=== PATIENT | male | born 1965 | race Native Hawaiian/Other Pacific Islander ===

== ENCOUNTER 2018-04-07 15:38 | Emergency (ER) | payer OTHER ==
[~2018-04-07] VITALS: Ht 180.3 cm; Wt 83.9 kg
[2018-04-07 21:10] VITALS: BP 134/86; TEMP 98.2
== END 2018-04-07 21:11 | disposition home or self-care (01) ==
LOC: ED 15:38
DX: S22.42XA Multiple fractures of ribs, left side, initial encounter for closed fracture (principal); W01.198A Fall on same level from slipping, tripping and stumbling with subsequent striking against other object, initial encounter; Y92.69 Other specified industrial and construction area as the place of occurrence of the external cause
CPT/HCPCS: 36415; 96374; 99284; J1885; Q9963

== ENCOUNTER 2018-10-10 13:42 | Emergency (ER) | payer OTHER ==
[~2018-10-10] VITALS: Ht 180.3 cm; Wt 89.4 kg
[2018-10-10 14:22] LABS: PLATELET COUNT 291 K/uL (142-355)
[2018-10-10] MEDS ORDERED: PROTONIX20 MG PO (14:25)
[2018-10-10] MEDS ORDERED: IBU800 MG PO (14:26)
[2018-10-10 14:49] LABS: POTASSIUM 3.7 mmol/L (3.6-5.2); SODIUM 134 mmol/L (136-145)
[2018-10-10 16:47] LABS: PARTIAL THROMBOPLASTIN TIME 30.1 SECONDS (24.5-33.6)
[2018-10-10 16:55] VITALS: BP 119/77; TEMP 99.6
== END 2018-10-10 16:55 | disposition home or self-care (01) ==
LOC: ED 13:42
PROVIDERS: Student in an Organized Health Care Education/Training Program
DX: R50.9 Fever, unspecified (principal); B34.9 Viral infection, unspecified; R00.0 Tachycardia, unspecified
CPT/HCPCS: 36415; 80053; 81000; 83605; 83690; 83735; 84484; 85027; 85610; 85730; 87040; 87502; 93005; 96361; 96365; 96375; 99284; J2405; J3475

== ENCOUNTER 2019-03-10 08:54 | Outpatient (CLI) | payer OTHER ==
[~2019-03-10 08:54] MED LIST: IBU800 MG PO; PROTONIX20 MG PO
== END 2019-03-10 22:23 | disposition home or self-care (01) ==
LOC: RAD 08:54
DX: Z96.89 Presence of other specified functional implants (principal)

== ENCOUNTER 2019-05-01 13:22 | Outpatient (CLI) | payer OTHER ==
[2019-05-01 13:58] LABS: PLATELET COUNT 249 K/uL (142-355)
[2019-05-01 14:08] LABS: POTASSIUM 4.2 mmol/L (3.6-5.2)
== END 2019-05-01 20:17 | disposition home or self-care (01) ==
LOC: LABW 13:22
PROVIDERS: Internal Medicine Gastroenterology
DX: R10.13 Epigastric pain (principal); K86.1 Other chronic pancreatitis
CPT/HCPCS: 36415; 80053; 82150; 82784; 83690; 85027

== ENCOUNTER 2019-11-30 09:07 | Emergency (ER) | payer OTHER ==
[~2019-11-30] VITALS: Ht 180.3 cm; Wt 89.4 kg
[2019-11-30 09:15] VITALS: TEMP 98.9
[2019-11-30 09:54] LABS: POTASSIUM 4.2 mmol/L (3.6-5.2)
[2019-11-30 10:01] LABS: PLATELET COUNT 287 K/uL (142-355)
[2019-11-30 12:39] VITALS: BP 145/91
== END 2019-11-30 13:15 | disposition home or self-care (01) ==
LOC: ED 09:07
PROVIDERS: Hospitalist
DX: R10.84 Generalized abdominal pain (principal); K86.1 Other chronic pancreatitis
CPT/HCPCS: 80053; 80320; 81000; 82150; 83690; 85027; 96360; 96375; 99284; J1170; J2405; Q9963

== ENCOUNTER 2019-12-13 08:56 | Outpatient (CLI) | payer OTHER | END 2019-12-13 19:43 | disposition home or self-care (01) | LOC: MRI 08:56 → LABW 08:56 → MRI 09:00 | DX: R93.3 Abnormal findings on diagnostic imaging of other parts of digestive tract (principal); R79.89 Other specified abnormal findings of blood chemistry; K86.9 Disease of pancreas, unspecified | CPT/HCPCS: 36415; 82565; 84520; 86316; A9576 ==

== ENCOUNTER 2020-02-01 14:39 | Outpatient (CLI) | payer OTHER ==
[2020-02-01 15:08] LABS: PLATELET COUNT 279 K/uL (142-355)
[2020-02-01 15:26] LABS: POTASSIUM 4.8 mmol/L (3.6-5.2)
== END 2020-02-01 23:45 | disposition home or self-care (01) ==
LOC: LAB 14:39
PROVIDERS: Nurse Practitioner Family
DX: K21.9 Gastro-esophageal reflux disease without esophagitis (principal); E11.9 Type 2 diabetes mellitus without complications; R53.81 Other malaise; R53.83 Other fatigue; Z79.899 Other long term (current) drug therapy; E55.9 Vitamin D deficiency, unspecified
CPT/HCPCS: 80053; 80061; 83036; 84439; 84443; 84481; 85027

== ENCOUNTER 2020-08-29 13:34 | Outpatient (CLI) | payer OTHER | END 2020-08-29 19:55 | disposition home or self-care (01) | LOC: MRI 13:34 | PROVIDERS: ATTEND Internal Medicine Gastroenterology | DX: K86.89 Other specified diseases of pancreas (principal) | CPT/HCPCS: 36415; 82565; 84520; A9576 ==

== ENCOUNTER 2020-11-14 16:39 | Outpatient (CLI) | payer OTHER | END 2020-11-14 19:52 | disposition home or self-care (01) | LOC: LAB 16:39 | PROVIDERS: ATTEND Nurse Practitioner Family | DX: Z87.19 Personal history of other diseases of the digestive system (principal); R31.9 Hematuria, unspecified | CPT/HCPCS: 84153 ==

== ENCOUNTER 2021-01-09 13:39 | Outpatient (CLI) | payer OTHER | END 2021-01-09 22:17 | disposition home or self-care (01) | LOC: LAB 13:39 | PROVIDERS: ATTEND Nurse Practitioner Family | DX: R05 Cough (principal); Z11.52 Encounter for screening for COVID-19 | CPT/HCPCS: 87635; U0003 ==

== ENCOUNTER 2021-01-30 13:14 | Outpatient (CLI) | payer OTHER ==
[2021-01-30 13:24] LABS: PLATELET COUNT 252 K/uL (142-355)
[2021-01-30 13:45] LABS: POTASSIUM 4.3 mmol/L (3.6-5.2)
== END 2021-01-30 19:13 | disposition home or self-care (01) ==
LOC: LAB 13:14
PROVIDERS: ATTEND Nurse Practitioner Family
DX: Z00.00 Encounter for general adult medical examination without abnormal findings (principal); Z79.899 Other long term (current) drug therapy; E11.9 Type 2 diabetes mellitus without complications; E78.5 Hyperlipidemia, unspecified; E55.9 Vitamin D deficiency, unspecified; R53.83 Other fatigue; R53.81 Other malaise
CPT/HCPCS: 80053; 80061; 82306; 83036; 84439; 84443; 85027

== ENCOUNTER 2021-05-01 16:02 | Outpatient (CLI) | payer OTHER ==
[2021-05-01 16:55] LABS: PLATELET COUNT 250 K/uL (142-355)
[2021-05-01 17:24] LABS: POTASSIUM 4.6 mmol/L (3.6-5.2)
== END 2021-05-01 19:27 | disposition home or self-care (01) ==
LOC: LAB 16:02
PROVIDERS: ATTEND Nurse Practitioner Family
DX: E11.9 Type 2 diabetes mellitus without complications (principal); K21.9 Gastro-esophageal reflux disease without esophagitis; E55.9 Vitamin D deficiency, unspecified; R53.81 Other malaise; R53.83 Other fatigue; E78.5 Hyperlipidemia, unspecified; Z79.899 Other long term (current) drug therapy; R39.198 Other difficulties with micturition
CPT/HCPCS: 80053; 80061; 82306; 82607; 83036; 84402; 84403; 84439; 84443; 85027

== ENCOUNTER 2021-06-02 07:45 | Outpatient (CLI) | payer OTHER | END 2021-06-02 20:51 | disposition home or self-care (01) | LOC: CT 07:45 | PROVIDERS: ATTEND Nurse Practitioner Family | DX: R19.09 Other intra-abdominal and pelvic swelling, mass and lump (principal) | CPT/HCPCS: 36415; 82565; 84520 ==

== ENCOUNTER 2021-06-16 13:41 | Outpatient (CLI) | payer OTHER | END 2021-06-16 19:03 | disposition home or self-care (01) | LOC: LAB 13:41 | PROVIDERS: ATTEND Nurse Practitioner Family | DX: R94.6 Abnormal results of thyroid function studies (principal) | CPT/HCPCS: 84439; 84443 ==

== ENCOUNTER 2021-08-11 15:48 | Outpatient (CLI) | payer OTHER | END 2021-08-11 19:26 | disposition home or self-care (01) | LOC: CT 15:48 | PROVIDERS: ATTEND Nurse Practitioner Family | DX: R91.1 Solitary pulmonary nodule (principal) | CPT/HCPCS: 36415; 82565; 84520; Q9963 ==

== ENCOUNTER 2021-08-28 16:07 | Outpatient (CLI) | payer OTHER ==
[2021-08-28 16:39] LABS: PLATELET COUNT 249 K/uL (142-355)
[2021-08-28 17:01] LABS: POTASSIUM 4.4 mmol/L (3.6-5.2)
== END 2021-08-28 19:15 | disposition home or self-care (01) ==
LOC: LAB 16:07
PROVIDERS: ATTEND Nurse Practitioner Family
DX: E11.9 Type 2 diabetes mellitus without complications (principal); K21.9 Gastro-esophageal reflux disease without esophagitis; E55.9 Vitamin D deficiency, unspecified; R53.81 Other malaise; E78.5 Hyperlipidemia, unspecified; R53.83 Other fatigue; Z79.899 Other long term (current) drug therapy; R39.198 Other difficulties with micturition; R94.6 Abnormal results of thyroid function studies; Z87.19 Personal history of other diseases of the digestive system; R91.1 Solitary pulmonary nodule; Z09 Encounter for follow-up examination after completed treatment for conditions other than malignant neoplasm
CPT/HCPCS: 80053; 80061; 82306; 82607; 83036; 84153; 84439; 84443; 85027

== ENCOUNTER 2021-12-09 13:48 | Outpatient (CLI) | payer OTHER ==
[2021-12-09 14:01] LABS: PLATELET COUNT 280 K/uL (142-355)
[2021-12-09 14:31] LABS: POTASSIUM 4.9 mmol/L (3.6-5.2)
== END 2021-12-09 19:07 | disposition home or self-care (01) ==
LOC: LAB 13:48
PROVIDERS: ATTEND Nurse Practitioner Family
DX: E11.9 Type 2 diabetes mellitus without complications (principal); K21.9 Gastro-esophageal reflux disease without esophagitis; E55.9 Vitamin D deficiency, unspecified; R53.81 Other malaise; E78.5 Hyperlipidemia, unspecified; R53.83 Other fatigue; Z79.899 Other long term (current) drug therapy; R39.198 Other difficulties with micturition
CPT/HCPCS: 80053; 80061; 82306; 82607; 83036; 84153; 84439; 84443; 85027

== ENCOUNTER 2022-03-05 12:33 | Outpatient (CLI) | payer OTHER ==
[2022-03-05 12:56] LABS: PLATELET COUNT 291 K/uL (142-355)
[2022-03-05 14:52] LABS: POTASSIUM 4.6 mmol/L (3.6-5.2)
== END 2022-03-05 23:11 | disposition home or self-care (01) ==
LOC: LAB 12:33
PROVIDERS: ATTEND Nurse Practitioner Family
DX: E11.9 Type 2 diabetes mellitus without complications (principal); K21.9 Gastro-esophageal reflux disease without esophagitis; E55.9 Vitamin D deficiency, unspecified; E78.49 Other hyperlipidemia; R53.81 Other malaise; R53.83 Other fatigue; Z79.899 Other long term (current) drug therapy; R39.198 Other difficulties with micturition; R94.6 Abnormal results of thyroid function studies; Z87.19 Personal history of other diseases of the digestive system; D64.89 Other specified anemias; R91.1 Solitary pulmonary nodule; Z09 Encounter for follow-up examination after completed treatment for conditions other than malignant neoplasm
CPT/HCPCS: 80053; 80061; 82306; 83036; 84153; 84403; 84439; 84443; 85027

== ENCOUNTER 2022-09-07 13:13 | Outpatient (CLI) | payer OTHER ==
[2022-09-07 13:50] LABS: PLATELET COUNT 286 K/uL (142-355)
[2022-09-07 14:15] LABS: POTASSIUM 3.9 mmol/L (3.6-5.2)
== END 2022-09-07 19:27 | disposition home or self-care (01) ==
LOC: LAB 13:13
PROVIDERS: ATTEND Nurse Practitioner Family
DX: E11.9 Type 2 diabetes mellitus without complications (principal); K21.9 Gastro-esophageal reflux disease without esophagitis; E55.9 Vitamin D deficiency, unspecified; E78.49 Other hyperlipidemia; R53.81 Other malaise; R53.83 Other fatigue; Z79.899 Other long term (current) drug therapy; R39.198 Other difficulties with micturition; R94.6 Abnormal results of thyroid function studies; Z87.19 Personal history of other diseases of the digestive system; D64.89 Other specified anemias; Z09 Encounter for follow-up examination after completed treatment for conditions other than malignant neoplasm
CPT/HCPCS: 80053; 80061; 83036; 84439; 84443; 85027

== ENCOUNTER 2022-11-16 13:47 | Outpatient (CLI) | payer OTHER | END 2022-11-16 20:50 | disposition home or self-care (01) | LOC: LAB 13:47 | PROVIDERS: ATTEND Nurse Practitioner Family | DX: R94.6 Abnormal results of thyroid function studies (principal) | CPT/HCPCS: 84439; 84443 ==

== ENCOUNTER 2022-12-10 12:57 | Outpatient (CLI) | payer OTHER ==
[2022-12-10 13:13] LABS: PLATELET COUNT 261 K/uL (142-355)
[2022-12-10 13:44] LABS: POTASSIUM 4.5 mmol/L (3.6-5.2)
== END 2022-12-10 21:53 | disposition home or self-care (01) ==
LOC: LAB 12:57
PROVIDERS: ATTEND Nurse Practitioner Family
DX: E11.9 Type 2 diabetes mellitus without complications (principal); E78.49 Other hyperlipidemia; E55.9 Vitamin D deficiency, unspecified; K21.9 Gastro-esophageal reflux disease without esophagitis; R39.198 Other difficulties with micturition; R94.6 Abnormal results of thyroid function studies; Z79.899 Other long term (current) drug therapy; Z87.19 Personal history of other diseases of the digestive system; D64.89 Other specified anemias
CPT/HCPCS: 80053; 80061; 82306; 83036; 84153; 84439; 84443; 85027

== ENCOUNTER 2022-12-28 15:45 | Outpatient (CLI) | payer OTHER | END 2022-12-28 19:30 | disposition home or self-care (01) | LOC: RAD 15:45 | PROVIDERS: ATTEND Nurse Practitioner Family | DX: M54.59 Other low back pain (principal) ==